=== PATIENT | male | born 1980 | race Caucasian/White ===

== ENCOUNTER 2019-04-19 06:00 | Outpatient (RCR) | payer OTHER, SELFPAY | END 2019-04-29 23:59 | disposition home or self-care (01) | LOC: TPT 06:00 | PROVIDERS: PCP Family Medicine; Referring Provider Family Medicine; Visit Provider Family Medicine | DX: M54.5 Low back pain (principal) | CPT/HCPCS: 97032; 97110; 97161; 97530 ==

== ENCOUNTER 2019-08-23 11:41 | Outpatient (CLI) | payer OTHER, SELFPAY ==
--- NOTE | 2019-08-23 11:45 | MR_ITS ---
WS: [id number] MRI LUMBAR SPINE NONCONTRAST HISTORY: lumbar pain COMPARISON: 03/19/2016 TECHNIQUE: Sagittal and axial multisequence imaging is submitted. Patient has a known RIGHT scoliosis of the thoracic spine. Mild straightening of the normal lumbar lordosis. Schmorl's node defect at T12. Very mild anterior we dging of T11 and L1. No new fracture. There is a small amount of marrow edema along the adjacent endp lates at L5-S1. Very minimal disc desiccation at L4-5 and L5-S1. Conus terminates normally at L1. L1-L2: Normal. L2-L3: Mild annular disc bulging. L3-L4: Mild ligamentum flavum hypertrophy and annular disc bulging. No stenosis. L4-L5: Mild annular disc bulging with a central disc protrusion and annular fissure. Central disc pro trusion has slightly progressed since the prior study. No significant stenosis. L5-S1: Mild annular disc bulging with a RIGHT paracentral disc protrusion. This protrusion is slightl y smaller as compared to the prior study with less contact on the RIGHT S1 nerve root. There is mild enlargement and increased T2 signal in the RIGHT S1 nerve root. Bilateral facet joint arthritis, RIGH T greater than LEFT. Very mild proximal RIGHT foraminal narrowing. Focal hemilaminectomy defect on th e RIGHT at L5-S1. MR/MR lumbar spine wo con* [id number] IMPRESSION: 1. Central disc protrusion with annular fissure at L4-5 has slightly increased in size but no significant contact on the nerve roots. 2. RIGHT paracentral disc protrusion at L5-S1 has decreased in size since 2017 with less contact on the RIGHT S1 nerve root. 3. Enlargement and increased signal in the RIGHT S1 nerve root is new suggesti ng acute inflammation. 4. Cervical and thoracic structural scoliosis is again evident. 5. New marrow edema along the adjacent endplates of L5-S1 and along the RIGHT facet joint. Probably reactive may be related to inflammation.
== END 2019-08-23 11:42 | disposition home or self-care (01) ==
LOC: RADSHAW 11:44
PROVIDERS: PCP Family Medicine; Visit Provider Family Medicine
DX: M51.26 Other intervertebral disc displacement, lumbar region (principal); M41.9 Scoliosis, unspecified; R60.9 Edema, unspecified
CPT/HCPCS: 72148

== ENCOUNTER → 2019-08-30 08:24 | Outpatient (BNVA) | payer OTHER, SELFPAY | PROVIDERS: PCP Family Medicine; Referring Provider Family Medicine; Visit Provider Anesthesiology Pain Medicine | DX: G89.29 Other chronic pain (principal); M47.816 Spondylosis without myelopathy or radiculopathy, lumbar region; M51.16 Intervertebral disc disorders with radiculopathy, lumbar region; M46.00 Spinal enthesopathy, site unspecified; M62.830 Muscle spasm of back; F17.210 Nicotine dependence, cigarettes, uncomplicated; Z79.891 Long term (current) use of opiate analgesic | CPT/HCPCS: 99204; 99205 ==

== ENCOUNTER → 2019-10-04 13:59 | Outpatient (BNVA) | payer OTHER, SELFPAY | PROVIDERS: PCP Family Medicine; Visit Provider Anesthesiology Pain Medicine | DX: M51.16 Intervertebral disc disorders with radiculopathy, lumbar region (principal); M54.9 Dorsalgia, unspecified | CPT/HCPCS: 64483; 64484; J1040; J3490 ==

== ENCOUNTER → 2019-11-03 11:00 | Outpatient (BNVA) | payer OTHER, SELFPAY | PROVIDERS: PCP Family Medicine; Visit Provider Anesthesiology Pain Medicine | DX: M51.16 Intervertebral disc disorders with radiculopathy, lumbar region (principal); M47.816 Spondylosis without myelopathy or radiculopathy, lumbar region; M46.00 Spinal enthesopathy, site unspecified; M62.830 Muscle spasm of back; F17.210 Nicotine dependence, cigarettes, uncomplicated; Z79.891 Long term (current) use of opiate analgesic | CPT/HCPCS: 99213 ==

== ENCOUNTER → 2019-12-01 11:03 | Outpatient (BNVA) | payer OTHER, SELFPAY | PROVIDERS: PCP Family Medicine; Visit Provider Anesthesiology Pain Medicine | DX: M51.16 Intervertebral disc disorders with radiculopathy, lumbar region (principal); M47.816 Spondylosis without myelopathy or radiculopathy, lumbar region; M46.00 Spinal enthesopathy, site unspecified; M62.830 Muscle spasm of back; F17.210 Nicotine dependence, cigarettes, uncomplicated; Z79.891 Long term (current) use of opiate analgesic | CPT/HCPCS: 99213 ==

== ENCOUNTER → 2019-12-29 09:33 | Outpatient (BNVA) | payer OTHER, SELFPAY | PROVIDERS: PCP Family Medicine; Visit Provider Anesthesiology Pain Medicine | DX: M51.16 Intervertebral disc disorders with radiculopathy, lumbar region (principal); M47.816 Spondylosis without myelopathy or radiculopathy, lumbar region; M46.00 Spinal enthesopathy, site unspecified; M62.830 Muscle spasm of back; Z79.891 Long term (current) use of opiate analgesic; F17.210 Nicotine dependence, cigarettes, uncomplicated | CPT/HCPCS: 64483; 64484; 99212; J1040; J3490 ==

== ENCOUNTER → 2020-01-29 08:55 | Outpatient (BNVA) | payer OTHER, SELFPAY | PROVIDERS: PCP Family Medicine; Visit Provider Anesthesiology Pain Medicine | DX: M51.16 Intervertebral disc disorders with radiculopathy, lumbar region (principal); M47.816 Spondylosis without myelopathy or radiculopathy, lumbar region; M46.00 Spinal enthesopathy, site unspecified; M62.830 Muscle spasm of back; F17.210 Nicotine dependence, cigarettes, uncomplicated; Z79.891 Long term (current) use of opiate analgesic | CPT/HCPCS: 99213 ==

== ENCOUNTER → 2020-03-26 11:53 | Outpatient (BNVA) | payer OTHER, SELFPAY | PROVIDERS: PCP Family Medicine; Visit Provider Nurse Practitioner Family | DX: Z20.828 Contact with and (suspected) exposure to other viral communicable diseases (principal); J06.9 Acute upper respiratory infection, unspecified | CPT/HCPCS: 87635 ==

== ENCOUNTER 2020-04-26 06:00 | Outpatient (CLI) | payer OTHER, SELFPAY | END 2020-04-26 06:01 | disposition home or self-care (01) | LOC: LAB 04-29 08:01 | PROVIDERS: PCP Family Medicine; Visit Provider Nurse Practitioner Family | DX: Z13.6 Encounter for screening for cardiovascular disorders (principal); R10.9 Unspecified abdominal pain | CPT/HCPCS: 80053; 80061; 82947; 83036; 85025 ==

== ENCOUNTER → 2020-05-10 08:59 | Outpatient (BNVA) | payer OTHER, SELFPAY | PROVIDERS: PCP Family Medicine; Visit Provider Anesthesiology Pain Medicine | DX: M79.18 Myalgia, other site (principal); M51.16 Intervertebral disc disorders with radiculopathy, lumbar region; M47.816 Spondylosis without myelopathy or radiculopathy, lumbar region; M46.00 Spinal enthesopathy, site unspecified; F17.210 Nicotine dependence, cigarettes, uncomplicated; Z79.891 Long term (current) use of opiate analgesic | CPT/HCPCS: 20553; 99214 ==

== ENCOUNTER → 2020-07-05 10:45 | Outpatient (BNVA) | payer OTHER, SELFPAY | PROVIDERS: Absent Provider Anesthesiology Pain Medicine; PCP Family Medicine; Visit Provider Anesthesiology Pain Medicine | DX: M51.16 Intervertebral disc disorders with radiculopathy, lumbar region (principal); F17.210 Nicotine dependence, cigarettes, uncomplicated; Z79.891 Long term (current) use of opiate analgesic | CPT/HCPCS: 64483; 64484; J1040; J3490 ==

== ENCOUNTER → 2020-09-06 10:23 | Outpatient (BNVA) | payer OTHER, SELFPAY | PROVIDERS: PCP Family Medicine; Visit Provider Anesthesiology Pain Medicine | DX: M51.16 Intervertebral disc disorders with radiculopathy, lumbar region (principal); M48.062 Spinal stenosis, lumbar region with neurogenic claudication; M47.816 Spondylosis without myelopathy or radiculopathy, lumbar region; M46.00 Spinal enthesopathy, site unspecified; M62.830 Muscle spasm of back; F17.210 Nicotine dependence, cigarettes, uncomplicated; Z79.891 Long term (current) use of opiate analgesic | CPT/HCPCS: 99214 ==

== ENCOUNTER 2020-09-18 14:55 | Outpatient (CLI) | payer OTHER, SELFPAY ==
--- NOTE | 2020-09-18 15:15 | MR_ITS ---
WS: [id number] MRI LUMBAR SPINE NONCONTRAST TECHNIQUE: Sagittal T1, T2 and STIR imaging. Axial T1 and T2 imaging. CLINICAL INFORMATION: M48.062 - Spinal stenosis, lumbar region with neurogenic ... COMPARISON: None. FINDINGS: Mild lumbar curve. No acute compression. Disc bulging worse L4-L5 and L5-S1. Mild chronic anterior we dging at T11, T12 and L1 unchanged. Schmorl's node superior endplate T12. Shallow left pericentral pr otrusion T10-T11 with mild central canal stenosis and mild left foraminal narrowing only included on the sagittal imaging appears stable. 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 L1-L2: Normal. L2-L3: Mild annular bulging. Mild facet arthropathy. Spinal canal and foramen are patent. L3-L4: Mild annular bulging. Moderate facet arthropathy. Spinal canal and foramen are patent. L4-L5: Shallow central protrusion with slight effacement of ventral thecal sac. Moderate facet arthro acleb. Tiny annular fissure. Spinal canal and foramen are patent. L5-S1: Postoperative changes prior hemilaminectomy with partial discectomy. Tiny amount of soft tissu e abuts the right S1 nerve root new from previous with slight impingement. Some of this may represent granulation tissue but appears new compared to August 23, 2019 suspicious for small amount of new aj iated disc material. Recommend correlation for right S1 nerve root symptoms. This can be followed up with gadolinium for better anatomic detail. Mild right L5-S1 foraminal narrowing. Mild facet arthropa thy. Spinal canal is patent. Visualized pelvic bony structures: Normal. Paravertebral soft tissues: Normal. MR/MR lumbar spine wo con* [id number] IMPRESSION: 1. Mild lumbar curve. No acute compression. No high-grade central canal stenos is. 2. Prior postoperative changes right hemilaminectomy L5-S1 with partial discec melina. Tiny amount of soft tissue abuts the right S1 nerve root with slight impi ngement. Some of this may represent granulation tissue but appears new compared to previous August 23, 2019 suspicious for small amount of new herniated disc ma terial. Recommend correlation for right S1 nerve root symptoms. Mild right L5-S 1 foraminal narrowing. 3. Shallow central protrusion L4-5 with a tiny annular fissure and slight narr owing of the subarticular recess is slightly improved compared to previous. Sli ght encroachment traversing L5 nerve roots. Foramen are patent. 4. Mild to moderate facet arthropathy L3-L5. 5. Chronic anterior wedging at T11, T12, and L1 unchanged from previous. 6. Shallow left pericentral protrusion T10-T11 with mild central canal stenosi s and mild left foraminal narrowing only included on the sagittal imaging is st able.
== END 2020-09-18 14:56 | disposition home or self-care (01) ==
PROVIDERS: PCP Family Medicine; Visit Provider Anesthesiology Pain Medicine
DX: M48.062 Spinal stenosis, lumbar region with neurogenic claudication (principal); M51.24 Other intervertebral disc displacement, thoracic region; M48.55XA Collapsed vertebra, not elsewhere classified, thoracolumbar region, initial encounter for fracture; M47.816 Spondylosis without myelopathy or radiculopathy, lumbar region; M51.26 Other intervertebral disc displacement, lumbar region; M96.1 Postlaminectomy syndrome, not elsewhere classified
CPT/HCPCS: 72148

== ENCOUNTER → 2020-09-19 10:34 | Outpatient (BNVA) | payer OTHER, SELFPAY | PROVIDERS: PCP Family Medicine; Referring Provider Anesthesiology Pain Medicine; Visit Provider Orthopaedic Surgery | DX: M54.5 Low back pain (principal) | CPT/HCPCS: 72110 ==

== ENCOUNTER → 2020-09-20 08:53 | Outpatient (BNVA) | payer OTHER, SELFPAY | PROVIDERS: PCP Family Medicine; Visit Provider Orthopaedic Surgery | DX: Z01.812 Encounter for preprocedural laboratory examination (principal); Z20.822 Contact with and (suspected) exposure to COVID-19 | CPT/HCPCS: 87635 ==

== ENCOUNTER 2020-09-25 12:32 | Day surgery (SDC) | payer OTHER, SELFPAY ==
[2020-09-23 09:08] VITALS: BMI 33.5
[2020-09-25] VITALS (9 sets, daily range): BP systolic 104–129; BP diastolic 65–89; PULSE 84–120; RESP 14–18; TEMP 36.1–36.3; O2SAT 97–100
--- NOTE | 2020-09-25 | SCC_ITS ---
Procedure Done: 1. revison Right L5/S1 laminectomy with partial facetectomy and diskectomy 25.1 seconds of fluoroscopic guidance, for a cumulative dose of 9.64 mGy, was provided to Dr. Snow by the radiology department. C-arm images of the lumbar spine were saved for the patient's permanent record. [facility]
--- NOTE | 2020-09-25 | XR_ITS ---
WS: [id number] INTRAOPERATIVE TECHNIQUE: 3 Spot fluoroscopic images for intraoperative purposes. FLUOROSCOPY TIME: 25.1 seconds CLINICAL INFORMATION: OR / Lumbar Spine Decompression with revision of L4/5 COMPARISON: None. FINDINGS: Localization marker at the L5-S1 interspace XR/XR lumbar spine 1V [id number] IMPRESSION: Images obtained for intraoperative purposes.
[2020-09-25] MEDS: sodium chloride 0.9% 1,000 ML 30 ML IV (12:54)
[2020-09-25] MEDS: fentaNYL 50 mcg/mL INJ 2mL IVP ×2 (13:39→13:45)
--- NOTE | 2020-09-25 14:30 | W.PM.OPSUD ---
Surgery/Procedure H&P Update DATE OF PROCEDURE: September 25, 2020 DATE H&P PERFORMED: 09/19/20 H&P UPDATE INFORMATION: I have reviewed H&P completed within last 30 days, I have examined patient prior to procedure and No changes to prior documentation PREOP DIAGNOSIS: radiculopathy right S1 PLANNED PROCEDURE: Operation Date: 09/25/20 14:15 Proposed Procedures p Lumbar Spine Decompression with revision of L4/5 [id number] M48.061 M41.9(Not Applicable) - Gabriel Snow DO
--- NOTE | 2020-09-25 16:20 | PM.OP ---
Operative Report Date of procedure: September 25, 2020 Pre-op Diagnosis: radiculopathy right S1 Post-op diagnosis: same Procedure Done: 1. revison Right L5/S1 laminectomy with partial facetectomy and diskectomy Surgeon: Gabriel Snow Anesthesia: General Estimated blood loss (mL): 5 Condition: stable Disposition: PACU Procedure: 1. revison Right L5/S1 laminectomy with partial facetectomy and diskectomy Patient is brought to the operative suite. After undergoing anesthesia they are placed in the supine position. All areas of impingement are well padded. Patient is then prepped and draped in the normal sterile fashion. A skin incision is made over the L5/1 levelusing part of previous incision. This is confirmed under c-arm guidance. A series of dilators are passed and the tubular retractor is docked on the L5 lamina. A bovie is used to clear the soft tissue off the lamina and the L 5/S1 facet joint. A high speed geoff is then used to perform the laminectomy and take down the medial aspect of the L 5/S1 facet joint. A kerrison rongeure was then used to take down the remaining lamina and smooth the edge of the laminectomy up to the point where the ligamentum flavum attaches. Attention was then brought to the medial aspect of the facet joint. The remaining medial aspect of the superior and inferior aspect of the facet joint were taken down with the kerrison from the pedicle of L5 to S1. The facet joint had significant hypertrophy. Attention was then brought to the Ligamentum Flavum. The ligament was taken down from the lamina of L5 to S1 and out medially to the remaining facet joint. The ligament was scarrred to dura. The S1 nerve was scarred to the medial aspect of the facet. The dura was then exposed. The dura was in good repair. The L5 nerve was then traced with a curette out the L5/S1 foramen and found to be adequately decompressed. The S1 nerve was traced with a curette around the LS1 pedicle. Disk was freed from the dura of thS1 nerve and removed The lateral recess was opened with a kerrison helping to further decompress the S1 nerve. Wound is then irrigated copiously with saline and surgiflo is used to stop any bleeding. The tubular retractor is removed and the wound is closed with vicryl and monocryl suture. Glue is then used to protect the wound. A sterile dressing is then placed. Patient was then placed in the supine position and transferred to the PACU in stable condition.
--- NOTE | 2020-09-25 16:49 | ANE.PACU2 ---
Inpatient post-anesthesia follow up: Airway intact: Yes Vital signs: Temperature 97.0 F Pulse Rate 95 Respiratory Rate 16 Blood Pressure 113/78 Pulse Oximetry 99 Oxygen Delivery Me thod Room Air Oxygen Flow Rate 3 Fraction of Inspir ed Oxygen Hydration adequate: Yes Nausea and vomiting: No Pain level: 2 Mental status: Baseline
[2020-09-25] MEDS: HYDROcodone-acetaminophen 10-325 mg Tablet 1 TAB PO (17:15)
--- NOTE | 2020-09-25 18:36 | SUR.PREOP ---
Anesthesia approved patient to have 100mcg fentanyl in preop, order was in as 50mcg. Patient was administered 100 mcg Fentanyl and charted in 2-50mcg doses on the APR. Pyxus is requiring a waste of 50mcg, however there was no waste. Per Tobias in pharmacy waste will be documented on pyxus and charting left as is.
== END 2020-09-25 17:20 | disposition home or self-care (01) ==
PROVIDERS: PCP Family Medicine; Visit Provider Orthopaedic Surgery
PROC: (CPT 63005; principal; 2020-09-25 14:05)
DX: M54.18 Radiculopathy, sacral and sacrococcygeal region (principal); I10 Essential (primary) hypertension; Z79.82 Long term (current) use of aspirin; M48.061 Spinal stenosis, lumbar region without neurogenic claudication
CPT/HCPCS: 63042; 72020; 76000; J0690; J1100; J1170; J2250; J2405; J2704; J2710; J3010; J3490; J7030

== ENCOUNTER → 2020-10-09 08:59 | Outpatient (BNVA) | payer OTHER, SELFPAY | PROVIDERS: PCP Family Medicine; Visit Provider Anesthesiology Pain Medicine | DX: G89.29 Other chronic pain (principal); M51.16 Intervertebral disc disorders with radiculopathy, lumbar region; M47.816 Spondylosis without myelopathy or radiculopathy, lumbar region; M46.00 Spinal enthesopathy, site unspecified; M51.26 Other intervertebral disc displacement, lumbar region; M24.20 Disorder of ligament, unspecified site; M62.830 Muscle spasm of back; Z79.891 Long term (current) use of opiate analgesic | CPT/HCPCS: 99214 ==

== ENCOUNTER → 2020-11-08 08:36 | Outpatient (BNVA) | payer OTHER, SELFPAY | PROVIDERS: PCP Family Medicine; Visit Provider Anesthesiology Pain Medicine | DX: M51.16 Intervertebral disc disorders with radiculopathy, lumbar region (principal); M47.816 Spondylosis without myelopathy or radiculopathy, lumbar region; M46.00 Spinal enthesopathy, site unspecified; M62.830 Muscle spasm of back; F17.210 Nicotine dependence, cigarettes, uncomplicated; Z79.891 Long term (current) use of opiate analgesic | CPT/HCPCS: 99214 ==

== ENCOUNTER → 2021-03-12 09:01 | Outpatient (BNVA) | payer OTHER, SELFPAY | PROVIDERS: PCP Family Medicine; Visit Provider Nurse Practitioner Family | DX: Z11.52 Encounter for screening for COVID-19 (principal); Z20.828 Contact with and (suspected) exposure to other viral communicable diseases; Z13.9 Encounter for screening, unspecified | CPT/HCPCS: 87635 ==

== ENCOUNTER → 2021-05-01 10:53 | Outpatient (BNVA) | payer OTHER, SELFPAY | PROVIDERS: PCP Family Medicine; Visit Provider Family Medicine | DX: I10 Essential (primary) hypertension (principal) | CPT/HCPCS: 80053; 80061; 84443 ==